=== PATIENT | female | born 1955 | race Caucasian/White ===

== ENCOUNTER 2016-08-09 17:34 | Emergency (ER) | payer BC, OTHER ==
[2016-08-09 17:42] VITALS: BP 127/63
--- NOTE | 2016-08-09 19:10 | ED ---
Lower Extremity - HPI Summary HPI Summary: Patient presents with right ankle deformity and pain with ecchymosis after she inadvertently stepped in a hole. She is unsure how the injury occurred. She denies lower leg pain, knee pain or foot pain. The medial malleolus is erythematous with slight deformity noted. She denies other injuries or hitting her head. She denies previous injury to the area. She denies blood thinners. Occurred approx 1 hour prior to arrival and she has been unable to ambulate. - History of Current Complaint Chief Complaint: EDExtremityLower Stated Complaint: RIGHT ANKLE PAIN Time Seen by Provider: 08/09/16 18:03 Hx Obtained From: Patient Mechanism Of Injury: Fall From A Standing Position Onset of Pain: Immediate Onset/Duration: Minutes Severity Initially: Severe Severity Currently: Severe Pain Intensity: 7 Pain Scale Used: 0-10 Numeric Timing: Constant Location: Is Discrete @ - right medial malleolus Character Of Pain: Aching Associated Signs And Symptoms: Positive: Swelling, Redness, Bruising Aggravating Factor(s): Standing, Ambulation Alleviating Factor(s): Rest Able to Bear Weight: No - Risk Factors Gout Risk Factors: Age Over 40 DVT Risk Factors: Negative Septic Arthritis Risk Factor: Negative - Allergies/Home Medications Allergies/Adverse Reactions: Allergies Allergy/AdvReac Type Severity Reaction Status Date / Time No Known Allergies Allergy Verified 06/25/16 12:07 PMH/Surg Hx/FS Hx/Imm Hx Previously Healthy: Yes Respiratory History: Reports: Hx Asthma - ON PRESCRIBED INHALIER THAT DOESNT SEEM TO BE HELPING Musculoskeletal History: Denies: Hx Osteoporosis - Immunization History Hx Pertussis Vaccination: No Immunizations Up to Date: Unable to Obtain/Confirm Infectious Disease History: No Infectious Disease History: Denies: Traveled Outside the [place] in Last 30 Days - Social History Occupation: Unemployed Lives: With Family Alcohol Use: None Hx Substance Use: No Substance Use Type: Reports: None Hx Tobacco Use: No Smoking Status (MU): Never Smoked Tobacco Do You Chew or Dip Tobacco: No Have You Chewed or Dipped Tobacco in the LAST YEAR: No Review of Systems Constitutional: Negative Eyes: Negative Cardiovascular: Negative Respiratory: Negative Positive: no symptoms reported, see HPI Positive: Arthralgia - right ankle Skin: Negative Neurological: Negative Psychological: Normal All Other Systems Reviewed And Are Negative: Yes Physical Exam Triage Information Reviewed: Yes Vital Signs On Initial Exam: Initial Vitals Temp Pulse Resp BP Pulse Ox 98 F 68 18 127/63 98 08/09/16 17:39 08/09/16 17:39 08/09/16 17:39 08/09/16 17:39 08/09/16 17:39 Vital Signs Reviewed: Yes Appearance: Positive: Well-Appearing, No Pain Distress, Well-Nourished Skin: Positive: Warm, Skin Color Reflects Adequate Perfusion, Other - ecchymosis and erthema over medial malleolus Eyes: Positive: Normal, EOMI, MAXIMO, Conjunctiva Clear Neck: Positive: Supple, No Lymphadenopathy Respiratory/Lung Sounds: Positive: Clear to Auscultation, Breath Sounds Present Cardiovascular: Positive: Normal, RRR, Pulses are Symmetrical in both Upper and Lower Extremities Musculoskeletal: Positive: Pain @ - medial malleolus Neurological: Positive: Sensory/Motor Intact, Alert, Oriented to Person Place, Time, Speech Normal Psychiatric: Positive: Normal AVPU Assessment: Alert - [place] Coma Scale Best Eye Response: 4 - Spontaneous Best Motor Response: 6 - Obeys Commands Best Verbal Response: 5 - Oriented Diagnostics - Vital Signs Vital Signs Temp Pulse Resp BP Pulse Ox 08/09/16 17:39 98 F 68 18 127/63 98 - Laboratory Lab Statement: Any lab studies that have been ordered have been reviewed, and results considered in the medical decision making process. Lower Extremity Course/Dx - Course Course Of Treatment: Xray obtained. No vascular or neuro compromise. Pulses + 2 intact bilaterally. FINDINGS: There is a transverse intra-articular fracture of the medial malleolus which is. slightly distracted. There is an oblique intra-articular fracture of the distal lateral. malleolus. The distal fragment is displaced posteriorly at least one cortical diameter. In. addition there is a displaced fracture of the posterior malleolus. There is diffuse. widening of the ankle mortise. IMPRESSION: TRIMALLEOLAR FRACTURE WITH WIDENING OF THE ANKLE MORTISE. Consult with Dr. Polanco at 7:30p for request for type of splint. Plaster posterior walking with sugar tong placed. Patient tolerated well. Oxycodone prescribed for breakthrough pain. Follow up with Dr. Larry on Thursday. Return precautions explained. Patient agrees to follow up. Results explained to patient and non-weight bearing status. Crutches explained by RN. Baumann for discharge. - Diagnoses Differential Diagnosis/HQI/PQRI: Positive: Dislocation, Fracture (Closed), Fracture (Open) Provider Diagnoses: Trimalleolar fracture Discharge - Discharge Plan Condition: Stable Disposition: HOME Prescriptions: oxyCODONE/Acetamin 5/325 MG* [Percocet 5/325 TAB*] 1 tab PO Q6H PRN #16 tab MDD 4 PRN Reason: Pain oxyCODONE/Acetamin 5/325 MG* [Percocet 5/325 TAB*] 1 tab PO Q6H PRN #16 tab MDD 4 PRN Reason: Pain Patient Education Materials: Ankle Fracture (ED) Referrals: Abilio Chaparro MD [Primary Care Provider] - Brenden Larry MD [Medical Doctor] - Additional Instructions: Crutches for ambulation given. DO NOT BEAR ANY WEIGHT ON THE LEG. Ibuprofen 600mg three times daily with meals for pain. If pain is not well controlled with Ibuprofen, you may take the oxycodone on the opposite schedule. Follow up with orthopedic physician ON Thursday. Call Thursday for appt. If numbness, tingling, decreased sensation, increased pain, temperature changes or pallor noted in toes, come back to ER immediately. Protect the area. For your comfort level, do not bear weight, pull or push until you can injury is somewhat healed. Rest the involved area. Ice. Not directly on the skin. Cover with a towel. Apply ice no more than 30 minutes at a time
--- NOTE | 2016-08-09 19:16 | RAD ---
INDICATION: Right ankle injury. TECHNIQUE: 3 views of the right ankle were obtained. FINDINGS: There is a transverse intra-articular fracture of the medial malleolus which is slightly distracted. There is an oblique intra-articular fracture of the distal lateral malleolus. The distal fragment is displaced posteriorly at least one cortical diameter. In addition there is a displaced fracture of the posterior malleolus. There is diffuse widening of the ankle mortise. IMPRESSION: TRIMALLEOLAR FRACTURE WITH WIDENING OF THE ANKLE MORTISE.
--- NOTE | 2016-08-09 19:18 | RAD ---
INDICATION: Right lower leg injury. TECHNIQUE: 2 views of the right lower leg were obtained. FINDINGS: Again note is made of a trimalleolar fracture of the ankle. No additional fracture is seen. IMPRESSION: TRIMALLEOLAR FRACTURE OF THE ANKLE. NO ADDITIONAL FRACTURE IS SEEN.
[2016-08-09] MEDS ORDERED: Morphine INJ* 2 MG/ML 1 ML SYRINGE IV ONE ×2 (19:27→20:35)
== END 2016-08-09 21:05 | disposition home or self-care (01) ==
LOC: ED 17:34
DX: S82.851A Displaced trimalleolar fracture of right lower leg, initial encounter for closed fracture (principal); W17.89XA Other fall from one level to another, initial encounter; Y93.9 Activity, unspecified; Y92.9 Unspecified place or not applicable
CPT/HCPCS: 96374; 99282; J2270

== ENCOUNTER → 2016-08-18 07:13 | Day surgery (SDC) | payer BC ==
[~2016-08-18 07:13] MED LIST: Buffered Lidocaine 0.9% SYRIN* 5 ML/SYR SYRINGE INTRADERM ONE; Buffered Lidocaine 0.9% SYRIN* 5 ML/SYR SYRINGE ONE; Bupivacaine 0.5% W/EPI SDV* 10 ML VIAL INJ ONE; Dexamethasone IV* 4 MG/ML 1 ML (4 MG) IV SLOW PU ONE; Dexamethasone IV* 4 MG/ML 1 ML (4 MG) ONE; DiMENhydriNATE IV* 50 MG/ML VIAL IV PUSH PRN; Famotidine IV* 10 MG/ML 2 ML (20 mg) IV ONE; Famotidine IV* 10 MG/ML 2 ML (20 mg) ONE; KETAMINE HCL* 50 MG/ML 10 ML VIAL ONE; Ketorolac INJ* 30 MG/ML 1 ML VIAL ONE; Lidocaine 1% INJ* 10 MG/ML 30 ML SDV ONE; Midazolam* 1 MG/ML 2 ML VIAL (2 MG) ONE; Ondansetron INJ* 2 MG/ML VIAL ONE; Propofol* 10 MG/ML 20 ML BTL IV PUSH ONE; ceFAZolin 2 GM PREMIX(*) 2 GM/50 ML BAG IVPB ONE; fentaNYL* 50 MCG/ML 2 ML VIAL (100 MCG VIAL) ONE; oxyCODONE TAB* 5 MG TAB ONE
[2016-08-18] MEDS: fentaNYL* 50 MCG/ML 2 ML VIAL (100 MCG VIAL) IV PRN ×2 (10:16→10:33)
[2016-08-18 11:35] VITALS: BP 117/88
--- NOTE | 2016-08-19 05:34 | OP ---
DATE OF OPERATION: 08/18/16 - [facility] DATE OF : 51 SURGEON: Sanchez Bolanos MD DIRECTOR FINANCIAL SYSTEMS: Moira Zapata PA-C ANESTHESIOLOGIST: Naveed Anthony MD ANESTHESIA: General PRE-OP DIAGNOSIS: Right bimalleolar ankle fracture. POST-OP DIAGNOSIS: Right bimalleolar ankle fracture. OPERATIVE PROCEDURE: Internal fixation right bimalleolar ankle fracture. DESCRIPTION OF PROCEDURE: The patient was taken to the operating room where a thigh tourniquet was inflated. We made a longitudinal incision over the distal fibula. The patient has a collar; we were able to bring it out to length and then pin this longitudinally with a 0.062 C-wire. We then fashioned a one- third tubular plate to the posterior aspect of the fibula, fixing this with posterior to anterior 3.5 mm cortical screws. The medial malleolar fracture was identified just posterior to the saphenous nerve, a longitudinal incision being made. We reduced this with a small pointed reduction clamp and pinned this with paired 4.0 mm cannulated screws. X -rays done intraoperatively showed satisfactory position of both medial and lateral malleoli. We irrigated both medial and lateral wounds, closing with 2-0 Vicryl and tia and compression dressing and a plaster splint applied. [id number]/[facility] #: [id number] [facility]IATRIC CENTERDevin
--- NOTE | 2016-08-19 09:41 | RAD ---
CPT II Codes: 6045F INDICATION: Right ankle fracture. Fluoroscopic services provided for referring physician. Approximately 2.1 seconds of fluoroscopy time was used. One spot image demonstrates internal fixation of ankle fracture. IMPRESSION: Fluoroscopic services provided for referring physician.
== END | disposition home or self-care (01) ==
LOC: OR 07:13
PROVIDERS: ATTEND Orthopaedic Surgery
DX: S82.841A Displaced bimalleolar fracture of right lower leg, initial encounter for closed fracture (principal); W18.31XA Fall on same level due to stepping on an object, initial encounter; Y92.007 Garden or yard of unspecified non-institutional (private) residence as the place of occurrence of the external cause; M19.90 Unspecified osteoarthritis, unspecified site; M79.7 Fibromyalgia
CPT/HCPCS: 76000; 88304; A9270-GY; C1713; C1776; J0690; J1100; J1885; J2001; J2250; J2405; J2704; J3010

== ENCOUNTER 2017-03-05 12:44 | Emergency (ER) | payer BC ==
[2017-03-05 13:21] VITALS: BP 148/61
--- NOTE | 2017-03-05 14:52 | UC ---
Back Pain HPI - HPI Summary HPI Summary: 61 yo female with left thoracic back pain x 2 weeks no trauma hurts to twist/use left arm no paresthesias no CP or SOB - History of Current Complaint Chief Complaint: UCBackPain Stated Complaint: BACK PAIN Time Seen by Provider: 03/05/17 14:25 Hx Obtained From: Patient Onset/Duration: Gradual Onset, Lasting Weeks Timing: Constant Severity Initially: Mild Severity Currently: Moderate Pain Intensity: 6 Pain Scale Used: 0-10 Numeric Character: Dull, Aching, Spasmodic Aggravating Factor(s): Movement, Bending Alleviating Factor(s): Rest, Position Associated Signs And Symptoms: Positive: Negative - Allergies/Home Medications Allergies/Adverse Reactions: Allergies Allergy/AdvReac Type Severity Reaction Status Date / Time adhesives AdvReac Intermediate Rash Uncoded 03/05/17 13:21 PMH/Surg Hx/FS Hx/Imm Hx Previously Healthy: Yes Respiratory History: Asthma - Surgical History Surgical History: Yes Surgery Procedure, Year, and Place: TONSILLECTOMY 1949'S. OVARY REMOVED AT 15 YEARS OLD. GALLBLADDER REMOVED 1991. 1993. HYSTERECTOMY 1994. right ankle surgery 1917 - Family History Known Family History: Positive: Hypertension - Social History Alcohol Use: Occasionally Alcohol Amount: socially Substance Use Type: Marijuana Smoking Status (MU): Never Smoked Tobacco Review of Systems Constitutional: Negative Skin: Negative Eyes: Negative ENT: Negative Respiratory: Negative Cardiovascular: Negative Gastrointestinal: Negative Genitourinary: Negative Motor: Negative Neurovascular: Negative Musculoskeletal: Myalgia Neurological: Negative Psychological: Negative Is Patient Immunocompromised?: No All Other Systems Reviewed And Are Negative: Yes Physical Exam Triage Information Reviewed: Yes Appearance: Well-Appearing, No Pain Distress, Well-Nourished Vital Signs: Initial Vital Signs Temp 99.7 F 03/05/17 13:14 Pulse 88 03/05/17 13:14 Resp 18 03/05/17 13:14 BP 148/61 03/05/17 13:14 Pulse Ox 96 03/05/17 13:14 Vital Signs Reviewed: Yes Eyes: Positive: Conjunctiva Clear ENT: Positive: Hearing grossly normal. Negative: Nasal congestion, Nasal drainage, Trismus, Muffled voice, Hoarse voice Neck exam: Normal Respiratory: Positive: Lungs clear, Normal breath sounds, No respiratory distress Cardiovascular: Positive: RRR, No Murmur Musculoskeletal: Positive: ROM Intact, No Edema Neurological: Positive: Alert, Muscle Tone Normal, Other: - strength 5/5 Psychological Exam: Normal Skin Exam: Normal Back Pain Course/Dx - Differential Dx/Diagnosis Provider Diagnoses: left thoracic back pain Discharge - Discharge Plan Condition: Stable Disposition: HOME Prescriptions: Cyclobenzaprine TAB* [Flexeril TAB*] 5 mg PO TID PRN #12 tab PRN Reason: Spasms Patient Education Materials: Thoracic Back Strain (ED) Referrals: Abilio Chaparro MD [Primary Care Provider] - 2 Weeks Additional Instructions: PT consult continue ibuprofen muscle relaxant may cause drowsiness/ don't take and drive/ use sparingly Images Front/Back of Body, Lg ([place]): 1 - tender/firm rhomboid muscle
== END 2017-03-05 14:54 | disposition home or self-care (01) ==
LOC: UCEAST 12:44
DX: M54.6 Pain in thoracic spine (principal); J45.909 Unspecified asthma, uncomplicated; Z90.49 Acquired absence of other specified parts of digestive tract; Z90.89 Acquired absence of other organs; Z90.710 Acquired absence of both cervix and uterus; Z91.048 Other nonmedicinal substance allergy status; F12.90 Cannabis use, unspecified, uncomplicated
CPT/HCPCS: 99212; G0463